=== PATIENT | female | born 1995 ===

== ENCOUNTER 2020-12-29 15:05 | Emergency (ER) | payer BC ==
[~2020-12-29] VITALS: Ht 162.6 cm; Wt 63.5 kg
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
[2020-12-29] MEDS ORDERED: MORPHINE SULFATE 4 MG/1 ML DISP.SYRIN IM ONE (15:45)
--- NOTE | 2020-12-29 15:46 | NUR ---
As soon as IV morphine was given, patient said "I want more morphine." MD notified.
[2020-12-29] MEDS ORDERED: MORPHINE SULFATE 4 MG/1 ML DISP.SYRIN ONE (15:49)
--- NOTE | 2020-12-29 15:50 | NUR ---
Pt keeps walking out the nursing station and asking the ERMD for more narcotic pain medications. Pt was advised to stay in the gurney due to fall risk. Pt refuses to stay in her room. Pt was re-eval by ERMFrida multiple times.
[2020-12-29 16:01] LABS: HEMATOCRIT 34.8 % (31.2-41.9); MEAN CORPUSCULAR HEMOGLOBIN 26.7 uug (24.7-32.8); MEAN CORPUSCULAR VOLUME 80.7 fL (75.5-95.3); PLATELET COUNT (AUTO) 303 K/uL (179-408)
[2020-12-29 16:04] LABS: CARBON DIOXIDE 22 mmol/L (21-32); CHLORIDE 106 mmol/L (98-107); CREATININE 0.5 mg/dL (0.6-1.3); GLUCOSE 94 mg/dL (74-106); POTASSIUM 2.9 mmol/L (3.5-5.1); UREA NITROGEN, BLOOD 5 mg/dL (7-18)
--- NOTE | 2020-12-29 16:08 | NUR ---
Patient is refusing U/S scans unless "... I'm given my medicine." per patient. notified. Security assistance was requested.
[2020-12-29 16:09] LABS: ALANINE AMINOTRANSFERASE 214 U/L (14-59); ALKALINE PHOSPHATASE 281 U/L (50-136); ASPARTATE AMINOTRANSFERASE 52 U/L (15-37); BILIRUBIN,DIRECT 0.1 mg/dL (0.0-0.2); BILIRUBIN,TOTAL 0.2 mg/dL (0.2-1.0); LIPASE 52 U/L (73-393); TOTAL PROTEIN, SERUM 6.3 g/dL (6.4-8.2)
[2020-12-29] MEDS ORDERED: KETAMINE HCL 500 MG/10 ML INJ ONE (16:14)
[2020-12-29] MEDS ORDERED: KETAMINE HCL 500 MG/10 ML INJ IV ONE ×2 (16:15→16:30)
--- NOTE | 2020-12-29 16:17 | NUR ---
Patient keeps laying on the ER hallway floor again, (2nd time) after repeated redirections done by all ER nurses & transportation security officer Jono. Patient was assisted by 2 RNs to her gurney again.
--- NOTE | 2020-12-29 16:20 | NUR ---
The patient refuses the ultrasound exam. ER MD, RN and bank secrecy act officer noted.
[2020-12-29] MEDS ORDERED: HALOPERIDOL LACTATE 5 MG/1 ML VIAL ONE ×2 (16:40→19:50)
[2020-12-29] MEDS ORDERED: HALOPERIDOL LACTATE 5 MG/1 ML VIAL IM ONE (16:45)
--- NOTE | 2020-12-29 17:20 | NUR ---
Pt's mother arrived but did not want to come in to see the pt. She spoke with myself and outside of the ER. Per mother pt has hx of rapid cycling bipolar disorder and substance abuse. Pt has been on 5150 hold multiple times and was recently at a rehab facility in [place]. Per mother pt has been to multiple ER's in the area in the last few days since she arrived here from [place]. Per mother pt has been prescribed Vraylar along with other medications but has not been taking any of her prescribed medications.
--- NOTE | 2020-12-29 17:30 | NUR ---
CODE coty was called. Patient is yelling, screaming loudly, unable to contract safety@this time.
[2020-12-29] MEDS ORDERED: OLANZAPINE 10 MG VIAL IM ONE ×2 (17:45→17:54)
--- NOTE | 2020-12-29 18:22 | NUR ---
Extra warm blankets on. Patient is still on medical HOLD@this time.
--- NOTE | 2020-12-29 18:34 | NUR ---
Additional warm blankets on, monitored closely. Patient will intermittently scream and yell "Aaaaaah" loudly. Redirection and assurances were done. Patient still does not follow simple commands.
[2020-12-29 18:35] LABS: *AMPHETAMINE, URINE NEGATIVE (NEGATIVE); *CANNABINOID, URINE POSITIVE (NEGATIVE); *COCCAINE, URINE NEGATIVE (NEGATIVE); *OPIATE, URINE POSITIVE (NEGATIVE); *PHENCYCLIDINE SCREEN,URINE NEGATIVE (NEGATIVE)
[2020-12-29 18:37] LABS: *BILIRUBIN,URIN NEGATIVE (NEGATIVE); *BLOOD, URINE NEGATIVE (NEGATIVE); *CLARITY,URINE CLEAR (CLEAR); *COLOR,URINE YELLOW (YELLOW); *KETONES,URINE NEGATIVE (NEGATIVE); *UROBILINOGEN,URINE 0.2 E.U./dl (NORMAL); LEUKOCYTE ESTERASE ,URINE NEGATIVE (NEGATIVE); NITRITE, URINE NEGATIVE (NEGATIVE); UGLUCOSE NEGATIVE (NEGATIVE)
[2020-12-29 18:38] LABS: *URINE HCG, QUAL NEGATIVE (NEGATIVE)
--- NOTE | 2020-12-29 18:49 | NUR ---
Patient voided by bedpan.
[2020-12-29 18:50] LABS: CREATINE KINASE, TOTAL 224 U/L (26-192)
[2020-12-29 18:51] LABS: ETHANOL < 3 MG/DL (0-0)
[2020-12-29 18:54] LABS: ACETAMINOPHEN < 2.0 ug/mL (10-30)
--- NOTE | 2020-12-29 18:59 | NUR ---
Still for IV potassium & IV magnesium, not medically cleared@this time per Dr Burns
[2020-12-29 19:00] LABS: THYROID STIMULATING HORMONE 0.816 mIU/mL (0.358-3.740)
--- NOTE | 2020-12-29 19:04 | NUR ---
EKG was done with difficulty. Copy of EKG was handed to Dr Reeder. Patient refused EKG initially, pending CT scan, endorsed to 7pm nurse Onofre accordingly.
[2020-12-29] MEDS ORDERED: IV NORMAL SALINE 250 ML IV ONE (19:23)
[2020-12-29] MEDS ORDERED: IOHEXOL 300MG/ML 100 ML INFUS..BTL ONE (19:23)
[2020-12-29] MEDS ORDERED: SWABABLE VALVE TRANSFER SET EA MC ONE (19:23)
[2020-12-29] MEDS ORDERED: HALOPERIDOL LACTATE 5 MG/1 ML VIAL IV ONE (19:30)
[2020-12-29] MEDS ORDERED: diphenhydrAMINE 50 MG/1 ML VIAL IV ONE (19:30)
[2020-12-29] MEDS ORDERED: LORAZEPAM 2 MG/1 ML VIAL IV ONE (19:30)
--- NOTE | 2020-12-29 19:45 | NUR ---
Ultrasound at bedside.
[2020-12-29] MEDS ORDERED: diphenhydrAMINE 50 MG/1 ML VIAL ONE (19:50)
[2020-12-29] MEDS ORDERED: LORAZEPAM 2 MG/1 ML VIAL ONE (19:50)
[2020-12-29] MEDS: POTASSIUM CHLORIDE 50 ML IV SCH ×4 (20:37→22:44)
[2020-12-29] MEDS: MAGNESIUM SULFATE/D5W 100 ML IV SCH ×2 (20:37→21:40)
[2020-12-29] MEDS ORDERED: MAGNESIUM SULFATE/D5W 100 ML ONE (21:01)
--- NOTE | 2020-12-29 21:20 | NUR ---
Pt out of ER for CT.
--- NOTE | 2020-12-29 21:40 | NUR ---
Pt back to ER from CT.
--- NOTE | 2020-12-29 21:50 | NUR ---
Pt sleeping, no acute signs of distress, released bilat foot restraints.
--- NOTE | 2020-12-29 22:00 | NUR ---
Pt voided by bedpan, assisted by sitter.
--- NOTE | 2020-12-29 23:00 | NUR ---
Pt sleeping in bed, no acute signs of distress, VSS, sitter at bedside.
[2020-12-29] MEDS ORDERED: KETOROLAC TROMETHAMINE 30 MG INJ IVP ONE (23:15)
[2020-12-29] MEDS ORDERED: KETOROLAC TROMETHAMINE 15 MG INJ IVP ONE (23:15)
[2020-12-29] MEDS ORDERED: IV NORMAL SALINE 1000 ML BAG IV ONE (23:15)
[2020-12-29] MEDS ORDERED: HYDROMORPHONE 1 MG/1 ML DISP.SYRIN IV ONE (23:15)
[2020-12-29] MEDS ORDERED: ONDANSETRON 4 MG/2 ML VIAL IV ONE (23:15)
--- NOTE | 2020-12-30 | NUR ---
Pt sleeping in bed, no acute signs of distress, VSS, on two point wrist restraints, sitter at bedside.
--- NOTE | 2020-12-30 01:00 | NUR ---
Patient sleeping in bed, no acute signs of distress, VSS, on two point wrist restraints, circulation intact, sitter at bedside.
--- NOTE | 2020-12-30 02:00 | NUR ---
Patient sleeping in bed, no acute signs of distress, VSS, on two point wrist restraints, circulation intact, sitter at bedside.
--- NOTE | 2020-12-30 05:16 | NUR ---
Pt medically cleared by Dr. Reeder.
--- NOTE | 2020-12-30 05:42 | NUR ---
Removed left hand restraint. Patient restrained on the right hand. VSS, no acute signs of distress, circulation intact, sitter at bedside.
--- NOTE | 2020-12-30 07:05 | NUR ---
Called Reyna Roberts RN [facility] for pt psych evaluation. Left voicemail.
--- NOTE | 2020-12-30 07:10 | NUR ---
Pt is no longer on restrains.
--- NOTE | 2020-12-30 07:10 | NUR ---
Removed Rt wrist restrain, pt sleeping at this time. VSS and no acute distress noted.
--- NOTE | 2020-12-30 07:20 | NUR ---
Pt is awake and asking for pain medication, refuse to stay in bed. 1 to 1 sitter staying w/ pt.
--- NOTE | 2020-12-30 07:45 | NUR ---
Patient is resting comfortably in bed with eyes closed, NAD noted.
--- NOTE | 2020-12-30 07:48 | NUR ---
Left second massage for Reyna Beach, ([employer] teacher adult education), awaiting call back.
--- NOTE | 2020-12-30 08:13 | NUR ---
Pt states "I'm going to losr it", asking for Narcotic pain med and antianxity. Dr miller notified and order received for Ativan. Pt removed the HL on Rt hand, ativan given via LT AC HL.
[2020-12-30] MEDS ORDERED: LORAZEPAM 2 MG/1 ML VIAL IV ONE (08:15)
[2020-12-30] MEDS ORDERED: LORAZEPAM 2 MG/1 ML VIAL ONE (08:19)
--- NOTE | 2020-12-30 08:27 | NUR ---
Left another massage for Reyna canas(PET), awaiting call back.
--- NOTE | 2020-12-30 08:35 | NUR ---
Pt is awake, A/O x4, walking in room w/ steady gait. Pt raises her voice asking for Ketamin.
--- NOTE | 2020-12-30 08:41 | NUR ---
Place a call to Trena Alexander, and left a message.
--- NOTE | 2020-12-30 08:42 | NUR ---
Contacted NGHIA Rees from [facility], for pt's psych eval. Pt offered breakfast but declined. sitting in bed.
--- NOTE | 2020-12-30 08:46 | NUR ---
Spoke to Hawa Whiteside [facility], ETA 20 min for psych eval. Pt made aware.
--- NOTE | 2020-12-30 09:33 | NUR ---
Trena Whiteside [employer] @ the bedside for Psych eval.
--- NOTE | 2020-12-30 10:00 | NUR ---
IV removed. Catheter intact and site benign. Pressure and 4x4 gauze applied to site. No bleeding noted.
--- NOTE | 2020-12-30 10:05 | NUR ---
Pt received her belongings and dressed, and didn't wait for her d/c paperwork, and stating she has "ways" to get home. Pt walked out of ER w/ steady gait.
[2020-12-30 10:12] VITALS: BP 137/80
== END 2020-12-30 10:17 | disposition home or self-care (01) ==
LOC: EDBD 15:05 → ER 15:05
DX: F31.9 Bipolar disorder, unspecified (principal); R10.30 Lower abdominal pain, unspecified; F41.9 Anxiety disorder, unspecified
CPT/HCPCS: 36415; 74177; 76705; 76856; 80048; 80076; 80299; 80307; 80320; 81003; 82550; 83690; 84443; 84702; 84703; 85025; 93005; 96365; 96366; 96368; 96372; 96375 ×2; 99285; J1200; J1630 ×2; J2060 ×2; J2270; J3475 ×2; J3480; J3490; Q9967; A4663; G0480; J2358; J7030; J7050